=== PATIENT | male | born 1955 | race African-American/Black ===

== ENCOUNTER 2016-10-26 16:00 | Emergency (ER) | payer SELFPAY | END 2016-10-26 16:18 | disposition home or self-care (01) | LOC: ER 16:00 | DX: S83.91XA Sprain of unspecified site of right knee, initial encounter (principal); S33.5XXA Sprain of ligaments of lumbar spine, initial encounter; E11.9 Type 2 diabetes mellitus without complications; I10 Essential (primary) hypertension; X58.XXXA Exposure to other specified factors, initial encounter | CPT/HCPCS: 72100; 73560-RT; 99284; A9270-GY ==